=== PATIENT | male | born 1980 | race American Indian/Alaskan Native ===

== ENCOUNTER 2016-12-18 20:46 | Emergency (ER) | payer BC ==
[2016-12-18 20:51] VITALS: BP 125/82; PULSE 62; RESP 18; TEMP 97.1; O2SAT 98
--- NOTE | 2016-12-18 21:08 | ED PDOC ---
Upper Extremity Pain/Injury Time Seen by Provider: 12/18/16 20:53 Chief Complaint (Nursing): Upper Extremity Problem/Injury Chief Complaint (Provider): Right Hand Injury History Per: Patient History/Exam Limitations: no limitations Onset/Duration Of Symptoms: Hrs Current Symptoms Are (Timing): Still Present Additional Complaint(s): Prasanna Santos, a 36 year old male, presents to the ED with an injury to his right hand. The patient states that earlier in the day he slammed a car door on his right thumb, sustaining an injury. Patient states that the pain worsens as it gets closer to the tip of the finger. He reports that he took aleve 2hrs ago for pain but it offered mild relief. Past Medical History Reviewed: Historical Data, Nursing Documentation, Vital Signs Vital Signs: Last Vital Signs Temp 97.1 F L 12/18/16 20:48 Pulse 62 12/18/16 20:48 Resp 18 12/18/16 20:48 BP 125/82 12/18/16 20:48 Pulse Ox 98 12/18/16 20:48 - Medical History PMH: No Chronic Diseases - Surgical History Surgical History: No Surg Hx - Family History Family History: States: Unknown Family Hx - Living Arrangements Living Arrangements: With Family - Home Medications Home Medications: Ambulatory Orders Medication Instructions Recorded Ketorolac Tromethamine [Toradol] 10 mg PO TID #20 cap 12/18/16 - Allergies Allergies/Adverse Reactions: Allergies Allergy/AdvReac Type Severity Reaction Status Date / Time No Known Allergies Allergy Verified 12/18/16 20:47 Review of Systems Musculoskeletal: Positive for: Other (right thumb injury) Physical Exam - Reviewed Nursing Documentation Reviewed: Yes Vital Signs Reviewed: Yes - Physical Exam Appears: Positive for: Non-toxic, No Acute Distress Head Exam: Positive for: ATRAUMATIC, NORMAL INSPECTION, NORMOCEPHALIC Skin: Positive for: Normal Color, Warm, Dry. Negative for: Rash Eye Exam: Positive for: Normal appearance, EOMI, PERRL. Negative for: Nystagmus Extremity: Positive for: Normal ROM (Full ROM of right thumb), Swelling (Mild swelling to right thumb), Other (Bleeding underneath nail bed of right thumb). Negative for: Tenderness, Deformity Neurologic/Psych: Positive for: Alert, Oriented, Gait - ECG O2 Sat by Pulse Oximetry: 98 (RA) Pulse Ox Interpretation: Normal - Radiology X-Ray: Interpreted by Me X-Ray Interpretation: No Acute Disease Medical Decision Making Medical Decision Makin Initial Impression 36 y/o female presenting with right thumb injury Initial Plan: * RAD Rt hand * Reevaluation no fx noted, pt offered nail trepidation, but declined states he will attempt use of warm water and massage to help with subungal hematoma. pt advised to return to ED if worsened. will give pt a splint to finger to help with support. Scribe Attestation Documented by Bryanna Gilliam acting as a scribe for Libertad Mason PA-C. Scribe Attestation All medical record entries made by the Scribe were at my direction and personally dictated by me. I have reviewed the chart and agree that the record accurately reflects my personal performance of the history, physical exam, medical decision making, and the department course for this patient. I have also personally directed, reviewed, and agree with the discharge instructions and disposition. Disposition - Clinical Impression Clinical Impression: Finger injury, Subungual hematoma - Patient ED Disposition Is Patient to be Admitted: No Counseled Patient/Family Regarding: Studies Performed, Diagnosis, Need For Followup - Disposition Referrals: Deondre Schafer MD [Medical Doctor] - Disposition: Routine/Home Disposition Time: 21:41 Condition: STABLE Prescriptions: Ketorolac Tromethamine [Toradol] 10 mg PO TID #20 cap Instructions: Subungual Hematoma (ED) Forms: [employer] (Indian)
[2016-12-18] MEDS ORDERED: Oxycodone/Acetaminophen 5/325 mg Tab PO STA (21:38)
--- NOTE | 2016-12-19 10:07 | RAD ---
PROCEDURE: Right Hand Radiographs. HISTORY: thumb COMPARISON: None. FINDINGS: BONES: Three views of the right hand were performed. No fracture is seen. No lytic process is identified. No periosteal reaction is identified. The visualized carpal bones and distal radius are intact. JOINTS: Normal. No osteoarthritic changes. SOFT TISSUES: Normal. OTHER FINDINGS: None. IMPRESSION: Normal right hand radiographs.
== END 2016-12-18 21:53 | disposition home or self-care (01) ==
LOC: H.ER 20:46
DX: S60.011A Contusion of right thumb without damage to nail, initial encounter (principal); W22.8XXA Striking against or struck by other objects, initial encounter